=== PATIENT | female | born 1950 | race Caucasian/White ===

== ENCOUNTER 2019-11-20 06:50 | Inpatient (IN) ==
[2019-11-14 15:14] LABS: Basophils # 0.1 10*3/uL (0.0-0.2); Basophils % 0.5 % (0.0-0.8); Eosinophils # 0.2 10*3/uL (0.0-0.87); Eosinophils % 2.2 % (0.00-10.9); Hematocrit 43.1 VOL% (35.7-47.0); Hemoglobin 13.7 GM/DL (12.0-16.0); Immature Granulocytes % 0.5 %; Immature Granulocytes Absolute 0.05 #; Lymphocytes # 3.3 10*3/uL (1.4-4.0); Lymphocytes % 31.6 % (21.3-54.2); Mean Corpuscular HGB Conc 31.8 GM/DL (32-36); Mean Corpuscular Volume 96.2 FL (87-102); Mean Platelet Volume 9.7 FL (9.6-12.0); Monocytes % 5.1 % (1.7-12.7); Neutrophils % 60.1 % (38.7-73.9); Platelet Count 227 T/CUMM (130-400); Red Blood Count 4.48 MC/CUMM (3.8-5.5); Red Cell Distribution Width 14.6 % (9.3-17.3); White Blood Count 10.5 T/CUMM (4-12)
[2019-11-14 15:58] LABS: Calcium 9.1 MG/DL (8.5-10.1); Osmolality,Calculated 280.4 MOS/KG (273-304)
[~2019-11-20 06:50] MED LIST: ALVIMOPAN 12 MG CAPSULE PO ONE; ERTAPENEM 1,000 MG in SODIUM CHLORIDE 0.9% 100 ML IV ONE
[2019-11-20] MEDS ORDERED: ALBUTEROL 2.5 MG/3 ML NEB RESP TX ONE (08:00)
[2019-11-20] MEDS ORDERED: LACTATED RINGERS 1,000 ML IV SCH (08:00)
[2019-11-20] MEDS ORDERED: ERTAPENEM 1,000 MG VIAL ONE (08:06)
[2019-11-20] MEDS ORDERED: BUPIVACAINE MPF 0.25% 30 ML VIAL ONE (09:32)
[2019-11-20] MEDS ORDERED: DEXAMETHASONE 4 MG/1 ML VIAL ONE (09:33)
[2019-11-20] MEDS ORDERED: LIDOCAINE 1% 5 ML VIAL ONE (09:33)
[2019-11-20] MEDS ORDERED: ALVIMOPAN 12 MG CAPSULE ONE (09:36)
[2019-11-20] MEDS ORDERED: TISSUE ADHESIVE 1 EACH APPLICATOR TOP ONE (13:44)
[2019-11-20] MEDS ORDERED: INDOCYANINE GREEN 25 MG VIAL IV ONE (14:52)
[2019-11-20 16:07] LABS: Bilirubin,Urine Negative (Negative); Blood, Urine Small mg/dL (Negative); Glucose,Urine (UA) Negative (Negative); Ketones,Urine 20 mg/dL (Negative); Mucus,Urine Occasional /LPF (Occasional); Nitrite,Urine Negative (Negative); Protein,Urine Negative; RBC,Urine 1 /HPF (0-4); Squamous Epithelial Cell,Urine Occasional /HPF (0-10); Urine Appearance CLEAR (Clear); Urine Color Yellow (Yellow); Urine Specific Gravity 1.015 (1.001-1.035); Urine Urobilinogen < 2.0 EU/DL (0.2-1.0); WBC,Urine 2 /HPF (0-6)
[2019-11-20] MEDS ORDERED: SEVOFLURANE 1 UNIT/15 MINUTE INH ONE (16:16)
[2019-11-20] MEDS ORDERED: LIDOCAINE 2% 5 ML VIAL ONE (16:16)
[2019-11-20] MEDS ORDERED: propofoL 200 MG/20 ML VIAL IV ONE (16:16)
[2019-11-20] MEDS ORDERED: fentaNYL 100 MCG/2 ML VIAL ONE (16:17)
[2019-11-20] MEDS ORDERED: MIDAZOLAM 2 MG/2 ML VIAL ONE (16:17)
[2019-11-20] MEDS ORDERED: ONDANSETRON 4 MG/2 ML VIAL ONE ×2 (16:18→16:36)
[2019-11-20] MEDS ORDERED: PHENYLEPHRINE 10 MG/1 ML VIAL IV ONE (16:18)
[2019-11-20] MEDS ORDERED: GLYCOPYRROLATE 0.4 MG/2 ML VIAL ONE (16:18)
[2019-11-20] MEDS ORDERED: ROCURONIUM 100 MG/10 ML VIAL IV ONE (16:18)
[2019-11-20] MEDS ORDERED: NEOSTIGMINE 10 MG/10 ML VIAL ONE (16:18)
[2019-11-20] MEDS ORDERED: ePHEDrine 50 MG/ML VIAL ONE (16:18)
[2019-11-20] MEDS ORDERED: HYDROmorphone 2 MG/1 ML VIAL ONE (16:36)
[2019-11-20] MEDS ORDERED: HYDROmorphone 2 MG/1 ML VIAL IV PRN ×2 (16:44→16:51)
[2019-11-20] MEDS ORDERED: ONDANSETRON 4 MG/2 ML VIAL IV PRN (16:44)
[2019-11-20] MEDS ORDERED: ALBUTEROL 2.5 MG/3 ML NEB RESP TX PRN (16:51)
[2019-11-20] MEDS: KETOROLAC 15 MG/1 ML VIAL IV SCH ×2 (17:58→22:53)
[2019-11-20] MEDS: ONDANSETRON 4 MG/2 ML VIAL IV PRN ×2 (18:01→22:55)
[2019-11-20] MEDS: LACTATED RINGERS 1,000 ML IV SCH (18:07)
[2019-11-20 18:38] LABS: Basophils % 0.2 % (0.0-0.8); Eosinophils % 0.1 % (0.00-10.9); Hematocrit 45.3 VOL% (35.7-47.0); Hemoglobin 14.4 GM/DL (12.0-16.0); Immature Granulocytes % 0.4 %; Immature Granulocytes Absolute 0.05 #; Lymphocytes # 1.4 10*3/uL (1.4-4.0); Lymphocytes % 10.2 % (21.3-54.2); Mean Corpuscular HGB Conc 31.8 GM/DL (32-36); Mean Platelet Volume 10.5 FL (9.6-12.0); Neutrophils % 87.1 % (38.7-73.9); Platelet Count 201 T/CUMM (130-400); Red Blood Count 4.72 MC/CUMM (3.8-5.5); Red Cell Distribution Width 14.6 % (9.3-17.3); White Blood Count 13.7 T/CUMM (4-12)
[2019-11-20 18:45] LABS: Calcium 9.1 MG/DL (8.5-10.1); Osmolality,Calculated 284.1 MOS/KG (273-304)
[2019-11-20] MEDS ORDERED: MONTELUKAST 10 MG TABLET PO SCH (21:00)
[2019-11-20] MEDS: METHENAMINE HIPPURATE 1 GM TABLET PO SCH (21:06)
[2019-11-20] MEDS: ALVIMOPAN 12 MG CAPSULE PO SCH (21:06)
[2019-11-20] MEDS: PROPRANOLOL 20 MG TABLET PO SCH (22:56)
[2019-11-21] MEDS: LACTATED RINGERS 1,000 ML IV SCH ×2 (02:52→04:36)
[2019-11-21 04:56] LABS: Basophils % 0.1 % (0.0-0.8); Hematocrit 34.8 VOL% (35.7-47.0); Hemoglobin 11.3 GM/DL (12.0-16.0); Immature Granulocytes % 0.4 %; Immature Granulocytes Absolute 0.05 #; Lymphocytes # 2.2 10*3/uL (1.4-4.0); Lymphocytes % 19.2 % (21.3-54.2); Mean Corpuscular HGB Conc 32.5 GM/DL (32-36); Mean Corpuscular Volume 94.1 FL (87-102); Mean Platelet Volume 10.1 FL (9.6-12.0); Monocytes % 6.5 % (1.7-12.7); Neutrophils % 73.8 % (38.7-73.9); Platelet Count 191 T/CUMM (130-400); Red Cell Distribution Width 14.6 % (9.3-17.3); White Blood Count 11.3 T/CUMM (4-12)
[2019-11-21 05:27] LABS: Calcium 8.2 MG/DL (8.5-10.1); Osmolality,Calculated 281.3 MOS/KG (273-304)
[2019-11-21] MEDS: KETOROLAC 15 MG/1 ML VIAL IV SCH ×2 (05:52→10:20)
[2019-11-21] MEDS: METHENAMINE HIPPURATE 1 GM TABLET PO SCH (08:24)
[2019-11-21] MEDS: ALVIMOPAN 12 MG CAPSULE PO SCH (08:24)
[2019-11-21] MEDS: PROPRANOLOL 20 MG TABLET PO SCH (08:25)
[2019-11-21] MEDS ORDERED: PANTOPRAZOLE 40 MG TABLET PO SCH (09:00)
[2019-11-21] MEDS ORDERED: ENOXAPARIN 40 MG/0.4 ML SYRINGE SUBCUT SCH (09:00)
[2019-11-21] MEDS ORDERED: PROPRANOLOL 20 MG TABLET PO SCH (09:00)
[2019-11-21 11:22] LABS: Hematocrit 34.8 VOL% (35.7-47.0); Hemoglobin 11.3 GM/DL (12.0-16.0)
[2019-11-21 11:53] VITALS: BP 106/53
[2019-11-22] MEDS ORDERED: ERGOCALCIFEROL 50,000 UNIT CAPSULE PO SCH (09:00)
[2019-11-23] MEDS ORDERED: CYANOCOBALAMIN 1000 MCG/1 ML VIAL SUBCUT SCH (09:00)
== END 2019-11-21 14:22 | disposition home or self-care (01) | DRG 330 ==
LOC: N.OR 06:50 → N.SDSINP 06:50 → N.4E 17:19
PROVIDERS: ADMIT Surgery; ATTEND Surgery